=== PATIENT | female | born 1975 | race African-American/Black ===

== ENCOUNTER 2016-08-16 05:10 | Emergency (ER) | payer SELFPAY ==
[2016-08-16] MEDS ORDERED: DIAZEPAM 5 MG/ML DISP.SYRIN IM ONE (05:31)
[2016-08-16] MEDS ORDERED: KETOROLAC TROMETHAMINE 60 MG/2 ML VIAL IM ONE (05:31)
--- NOTE | 2016-08-16 06:07 | ED Physician Documentation ---
General Adult - HISTORIAN Historian: patient - HPI Stated Complaint: neck pain Chief Complaint: General Adult Onset: days ago (1) Timing: still present Severity: moderate Further Comments: yes (Pt is a 41 yo female with neck pain that began yesterday , occurring spontaneously. Sx have been getting worse. Pt has spasming on L side of neck.) - ROS CONST: no problems EYES/ENT: none CVS/RESP: none GI/: none MS/SKIN/LYMPH: none, other (neck pain, spasm) - PAST HX Past History: other (Thyroid dz) Surgeries/Procedures: BTL Allergies/Adverse Reactions: Allergies Allergy/AdvReac Type Severity Reaction Status Date / Time codeine Allergy Verified 08/16/16 05:35 Home Medications: Ambulatory Orders Medication Instructions Recorded NK [NK] 08/16/16 - SOCIAL HX Smoking History: cigarettes - FAMILY HX Family History: No - VITAL SIGNS Vital Signs: Vital Signs Temp Pulse Resp BP Pulse Ox 90 18 133/87 100 08/16/16 05:28 08/16/16 05:28 08/16/16 05:28 08/16/16 05:28 - REVIEWED ASSESSMENTS Nursing Assessment Reviewed: Yes Vitals Reviewed: Yes Progress - Progress Progress: Toradol 60 mg IM Valium 10 mg IM improved. ED Results Lab/Radiology - Orders Orders: ED Orders Category Date Time Status Diazepam [Valium] Med 08/16/16 05:31 Discontinued 10 mg IM NOW ONE Ketorolac Tromethamine [Toradol] Med 08/16/16 05:31 Discontinued 60 mg IM NOW ONE General Adult Physical Exam - PHYSICAL EXAM GENERAL APPEARANCE: moderate distress EENT: eye inspection normal NECK: other (L sided muscle spasm) RESPIRATORY: no resp distress CVS: reg rate & rhythm BACK: normal inspection SKIN: warm/dry, normal color EXTREMITIES: non-tender, normal range of motion, no evidence of injury NEURO: oriented X3, motor nml, sensation nml Discharge Clincal Impression: neck pain, muscle spasm Referrals: Patrick Melchor MD [Primary Care Provider] - Home Medications: Ambulatory Orders NK [NK] 08/16/16 Condition: Good Disposition: 01 HOME, SELF-CARE Decision to Admit: NO Decision Time: 06:08
[2016-08-16 06:30] VITALS: BP 126/74
== END 2016-08-16 06:25 | disposition home or self-care (01) ==
LOC: ED 05:10
DX: M54.2 Cervicalgia (principal)
CPT/HCPCS: 96372; 99283; J1885; J3360